=== PATIENT | male | born 1945 | race Caucasian/White ===

== ENCOUNTER 2019-01-06 06:19 | Day surgery (SDC) | payer MEDICARE, OTHER ==
[~2019-01-06 06:19] MED LIST: ALLOPURINOL300 MG PO; CIPROFLOXACN250 MG PO; DILAUDID 2MG2 MG/TA1 PO; FE TABS325 MG PO; FLUARIX QUADRIV1 IN1 IM; FLUZONE SPLT1 M1 IM; LEVOTHROID88 MCG PO; LEVOTHYROXIN112 MC1 PO; LEVOTHYROXIN75 MCG OR; LISINOP/HCTZ1 TAB PO; MULTIVITAMIN OR; SYNTHROID100 MCG PO; SYNTHROID88 MCG PO; VIAGRA100 MG PO; ZOSTAVAX IM
[2019-01-06 09:05] VITALS: BP 93/52
== END 2019-01-06 09:04 | disposition home or self-care (01) ==
LOC: ENDO 06:19
PROVIDERS: ATTEND Surgery
PROC: 0DJD8ZZ Inspection of Lower Intestinal Tract, Via Natural or Artificial Opening Endoscopic (ICD-10-PCS; principal; 2019-01-06)
DX: Z12.11 Encounter for screening for malignant neoplasm of colon (principal); K64.4 Residual hemorrhoidal skin tags; I10 Essential (primary) hypertension; E03.9 Hypothyroidism, unspecified; Z86.010 Personal history of colon polyps; Z85.46 Personal history of malignant neoplasm of prostate